=== PATIENT | female | born 1955 | race Caucasian/White ===

== ENCOUNTER → 2017-09-13 | Outpatient (CLI) | payer OTHER ==
[~2017-09-13] MED LIST: BONIVA150 MG PO; OSCAL 500 TAB500 MG PO; VITAMIN B-1000 MCG/T PO; VITAMIN D1000 IU PO; VITAMINC500CH
== END ==
LOC: MC.RAD 09:37
DX: Z12.31 Encounter for screening mammogram for malignant neoplasm of breast (principal)

== ENCOUNTER → 2018-12-04 | Outpatient (CLI) | payer OTHER | LOC: MC.RAD 08:30 | DX: Z12.31 Encounter for screening mammogram for malignant neoplasm of breast (principal) ==

== ENCOUNTER → 2019-03-27 | Outpatient (CLI) | payer OTHER | LOC: COL.RAD 03-10 07:30 | DX: H81.13 Benign paroxysmal vertigo, bilateral (principal); H91.91 Unspecified hearing loss, right ear | CPT/HCPCS: A9585 ==

== ENCOUNTER → 2020-02-02 | Outpatient (CLI) | payer OTHER | LOC: MC.RAD 08:30 | DX: Z12.31 Encounter for screening mammogram for malignant neoplasm of breast (principal) ==